=== PATIENT | female | born 1990 | race Asian ===

== ENCOUNTER 2021-01-11 04:50 | Day surgery (SDC) | payer BC ==
[2021-01-09 10:43] VITALS: BMI 19.8
[2021-01-11 12:07] VITALS: TEMP 98.3
[2021-01-11 12:54] VITALS: BP 90/55; PULSE 57
== END 2021-01-11 12:57 | disposition home or self-care (01) ==
LOC: JRADIR 04:50
PROVIDERS: ATTEND Internal Medicine
PROC: 07B23ZX Excision of Left Neck Lymphatic, Percutaneous Approach, Diagnostic (ICD-10-PCS; principal; 2021-01-11)
DX: D48.7 Neoplasm of uncertain behavior of other specified sites (principal)
CPT/HCPCS: 38505; 76942-TC; 88305-TC; 88341-TC; 88342-TC

== ENCOUNTER → 2021-01-27 | Day surgery (SDC) | payer BC | END | disposition home or self-care (01) | LOC: JRADIR 10:55 | PROVIDERS: ATTEND Internal Medicine | PROC: 0G9G3ZX Drainage of Left Thyroid Gland Lobe, Percutaneous Approach, Diagnostic (ICD-10-PCS; principal; 2021-01-27) | DX: C73 Malignant neoplasm of thyroid gland (principal) | CPT/HCPCS: 10005; 76942; 88173; 88305-TC ==